=== PATIENT | female | born 1995 | race African-American/Black ===

== ENCOUNTER 2024-02-20 20:31 | Emergency (ER) | payer OTHER ==
[~2024-02-20] VITALS: Ht 175.3 cm; Wt 65.8 kg
[2024-02-20] MEDS ORDERED: methylPREDNISolone SOD SUCC 125 MG/2ML VIAL ONE (20:54)
[2024-02-20] MEDS ORDERED: diphenhydrAMINE HCL 50 MG/ML VIAL ONE (20:54)
[2024-02-20] MEDS ORDERED: FAMOTIDINE/PF INJ 20 MG/2 ML VIAL IV ONE (20:54)
[2024-02-20] MEDS: IV NS 0.9% 1,000 ML BAG IV ONE (20:56)
[2024-02-20] MEDS: methylPREDNISolone SOD SUCC 125 MG/2ML VIAL IV ONE (21:00)
[2024-02-20] MEDS: diphenhydrAMINE HCL 50 MG/ML VIAL IV ONE (21:02)
[2024-02-20] MEDS: FAMOTIDINE/PF INJ 20 MG/2 ML VIAL IV ONE (21:05)
[2024-02-20] MEDS ORDERED: ONDANSETRON HCL/PF 4 MG/2 ML VIAL ONE (21:58)
[2024-02-20] MEDS: ONDANSETRON HCL/PF 4 MG/2 ML VIAL IV ONE (22:00)
[2024-02-20] MEDS ORDERED: EPIN0.3P3 IM (22:26)
[2024-02-20] MEDS ORDERED: FAMO-131 PO (22:26)
[2024-02-20] MEDS ORDERED: DIPH25CA83 PO (22:26)
[2024-02-20] MEDS ORDERED: PRED20TA PO (22:26)
[2024-02-20] MEDS ORDERED: ONDA4TAB5 PO (22:26)
[2024-02-20 23:04] VITALS: BP 115/67; TEMP 98.2; O2SAT 100
== END 2024-02-20 23:04 | disposition home or self-care (01) ==
LOC: ER 20:34
DX: R11.2 Nausea with vomiting, unspecified (principal); T78.1XXA Other adverse food reactions, not elsewhere classified, initial encounter; L29.9 Pruritus, unspecified; Z91.013 Allergy to seafood; X58.XXXA Exposure to other specified factors, initial encounter
CPT/HCPCS: 99284; 96374; 96361; 96375 ×3; J1200; J3490; J2919; J2405